=== PATIENT | female | born 1990 | race Caucasian/White ===

== ENCOUNTER 2020-07-05 23:27 | Emergency (ER) | payer BC, OTHER ==
[~2020-07-05] VITALS: Ht 157.5 cm; Wt 49.9 kg
--- NOTE | 2020-07-05 23:35 | NUR ---
PT BIBSELF C/O LOWER ABD AND BACK PAINX12 HOURS. PT AAOX4. PT DENIES HEMATURIA. PT STATES "I CATH MYSELF EVERY 4 HOURS. THIS IS THE MOST URINE I HAVE BEEN ABLE TO GIVE." PT BREATHING EVENLY AND UNLABORED. PT SELF CATHETERIZED TO PROVIDE URINE. SENT TO THE LAB. PT SKIN WARM, DRY, AND INTACT. PT ATTACHED TO MONITOR AND POX. WARM BLANKET GIVEN AND CALL LIGHT WITHIN REACH.
[2020-07-06 00:08] LABS: BILIRUBIN,URINE LARGE (NEGATIVE); COLOR,URINE YELLOW (YELLOW); LEUKOCYTE ESTERASE ,URINE Trace (NEGATIVE); NITRITE, URINE Negative (NEGATIVE); PH,URINE 6.5 (5.0-8.0); PROTEIN,URINE Negative (NEGATIVE); UGLUCOSE Negative (NEGATIVE); UROBILINOGEN,URINE 0.2 EU/dL (0.2)
--- NOTE | 2020-07-06 00:15 | NUR ---
PT USED THE RESTROOM AND WAS ABLE TO PRODUCE ABOUT 300ML OF URINE.
[2020-07-06 00:16] LABS: BACTERIA,URINE Few /HPF (None Seen); RBC,URINE 21-50 /HPF (0-2); SQUAMOUS EPITHELIAL CELL,UR Few /HPF (None Seen)
[2020-07-06] MEDS ORDERED: NITR100C6 PO (00:20)
--- NOTE | 2020-07-06 00:24 | NUR ---
Patient discharged to home in stable condition. Written and verbal after care instructions given. Patient verbalizes understanding of instruction. Pt ambulatory with a steady gait
[2020-07-06 00:26] VITALS: BP 131/79
== END 2020-07-06 00:24 | disposition home or self-care (01) ==
LOC: ER 23:39
DX: N39.0 Urinary tract infection, site not specified (principal); Z98.890 Other specified postprocedural states; Z91.040 Latex allergy status; Z79.899 Other long term (current) drug therapy
CPT/HCPCS: 81001; 84703-TC